=== PATIENT | male | born 1960 | race Caucasian/White ===

== ENCOUNTER 2019-06-24 21:24 | Emergency (ER) | payer OTHER ==
[2019-06-24 21:31] VITALS: RESP 18
[2019-06-24] MEDS ORDERED: SODIUM CHLORIDE 0.9% 500 ML 500 ML IV STA (21:43)
--- NOTE | 2019-06-24 21:59 | ED ---
General Adult HPI - General Chief complaint: Recheck/Abnormal Lab/Rx Stated complaint: Post op Fever Time Seen by Provider: 06/24/19 21:33 Source: patient, RN notes reviewed, old records reviewed Mode of arrival: ambulatory Limitations: no limitations - History of Present Illness Initial comments: 58-year-old male presents for evaluation of fever and vomiting. Patient is 6 days postop cholecystectomy. Patient was discharged from the hospital yesterd ay. He developed fever at home throughout the day today and he had one episode of vomiting this morning. He had taken his Motrin prior to arrival and has no complaints at the time of my evaluation. He denies cough. Denies dyspnea. Denies sore throat or rhinorrhea. Denies abdominal pain and some abdominal distention which she states is typical. Denies current dysuria, states he had some dysuria with his Irby catheter. Patient had contact the surgeon who sent the patient to the emergency department. His surgery was at [facility]. - Related Data Home Medications Medication Instructions Recorded Confirmed Azelastine HCl 2 spray EA NOSTRIL DAILY PRN 06/24/19 06/24/19 Cetirizine HCl 10 mg PO DAILY 06/24/19 06/24/19 Docusate [Colace] 100 mg PO BID 06/24/19 06/24/19 Ibuprofen [Motrin] 400 mg PO Q6HR PRN 06/24/19 06/24/19 Losartan [Cozaar] 50 mg PO DAILY 06/24/19 06/24/19 Omeprazole 20 mg PO DAILY 06/24/19 06/24/19 Triamcinolone 0.1% Cream [Kenalog 1 applicatio TOPICAL BID PRN 06/24/19 06/24/19 0.1% Cream] Allergies Allergy/AdvReac Type Severity Reaction Status Date / Time codeine Allergy Rash/Hives Verified 06/24/19 22:38 Review of Systems ROS Statement: Those systems with pertinent positive or pertinent negative responses have been documented in the HPI. ROS Other: All systems not noted in ROS Statement are negative. Past Medical History Past Medical History: GERD/Reflux, Hypertension History of Any Multi-Drug Resistant Organisms: None Reported Past Surgical History: Appendectomy, Cholecystectomy Past Psychological History: No Psychological Hx Reported Smoking Status: Current every day smoker Past Alcohol Use History: Daily Past Drug Use History: Marijuana General Exam Limitations: no limitations General appearance: alert, in no apparent distress Head exam: Present: atraumatic, normocephalic Eye exam: Present: normal appearance, PERRL ENT exam: Present: normal exam, normal oropharynx Neck exam: Present: normal inspection. Absent: tenderness, meningismus Respiratory exam: Present: normal lung sounds bilaterally. Absent: respiratory distress, wheezes Cardiovascular Exam: Present: normal rhythm, tachycardia GI/Abdominal exam: Present: distended, tenderness (Minimal tenderness. He has right upper quadrant laparotomy scar with no purulent drainage, minimal erythema, he is previous drain site with minimal serosanguineous drainage.) Extremities exam: Present: normal inspection, full ROM Back exam: Present: normal inspection Neurological exam: Present: alert, oriented X3, CN II-XII intact. Absent: motor sensory deficit Psychiatric exam: Present: normal affect, normal mood Skin exam: Present: warm, dry, intact. Absent: cyanosis, diaphoretic Course Vital Signs 06/24/19 06/24/19 21:28 22:45 Temperature 99.9 F H 98.9 F Pulse Rate 112 H 86 Respiratory 18 18 Rate Blood Pressure 105/58 118/75 O2 Sat by Pulse 96 96 Oximetry - Reevaluation(s) Reevaluation #1: 06/24/19 22:59 Patient reevaluated, resting comfortably with stable vitals, afebrile. Patient has no abdominal tenderness on exam. Medical Decision Making - Medical Decision Making 58-year-old male who is 6 days postop cholecystectomy presenting for evaluation of fever. Patient did have a measured temperature at home, he states he had not had medication and was lying under several blankets. I do not suspect this was the sole cause of his fever. He was worked up in the emergency department including chest x-ray which is negative for focal pneumonia. Influenza swab which is negative for flu. Patient had CBC showing no leukocytosis, hemoglobin was 12.7. He had mild thrombocytopenia at 123. Normal bili, mild elevation in AST. Urine is negative for infection. He has no abdominal tenderness, his abdomen is somewhat distended, incision is clean dry and intact, no purulence. No right upper quadrant tenderness, no abdominal tenderness. Initially the patient is tachycardic with temperature of 99.9. Repeat vitals show stable blood pressure, normal heart rate, afebrile. He has some mild lactic acid of 2.9 which is treated with IV fluids. Patient is asymptomatic at the time my reevaluation. I discussed case and lab results with general surgery and covering for Dr. Ambrocio, Dr. Wood. Recommends close outpatient follow-up. Patient will monitor symptoms, he will be present with elevated fever, development of cough or dyspnea, development of abdominal pain nausea vomiting. He will call the office in the morning for close outpatient follow-up. Patient is agreeable and eager for discharge. - Lab Data Result diagrams: 06/24/19 22:00 06/24/19 22:00 Lab Results 06/24/19 06/24/19 06/24/19 Range/Units 21:53 21:53 22:00 WBC 8.6 (3.8-10.6) k/uL RBC 3.78 L (4.30-5.90) m/uL Hgb 12.7 L (13.0-17.5) gm/dL Hct 38.4 L (39.0-53.0) % MCV 101.8 H (80.0-100.0) fL MCH 33.7 (25.0-35.0) pg MCHC 33.1 (31.0-37.0) g/dL RDW 14.1 (11.5-15.5) % Plt Count 123 L (150-450) k/uL Neutrophils % 78 % Lymphocytes % 15 % Monocytes % 4 % Eosinophils % 1 % Basophils % 0 % Neutrophils # 6.7 (1.3-7.7) k/uL Lymphocytes # 1.3 (1.0-4.8) k/uL Monocytes # 0.4 (0-1.0) k/uL Eosinophils # 0.1 (0-0.7) k/uL Basophils # 0.0 (0-0.2) k/uL Macrocytosis Slight Sodium (137-145) mmol/L Potassium (3.5-5.1) mmol/L Chloride (98-107) mmol/L Carbon Dioxide (22-30) mmol/L Anion Gap mmol/L BUN (9-20) mg/dL Creatinine (0.66-1.25) mg/dL Est GFR (CKD-EPI)AfAm (>60 ml/min/1.73 sqM) Est GFR (CKD-EPI)NonAf (>60 ml/min/1.73 sqM) Glucose (74-99) mg/dL Plasma Lactic Acid Jamal (0.7-2.0) mmol/L Calcium (8.4-10.2) mg/dL Total Bilirubin (0.2-1.3) mg/dL AST (17-59) U/L ALT (4-49) U/L Alkaline Phosphatase (38-126) U/L Total Protein (6.3-8.2) g/dL Albumin (3.5-5.0) g/dL Urine Color Yellow Urine Appearance Turbid (Clear) Urine pH 6.0 (5.0-8.0) Ur Specific Ethel 1.029 (1.001-1.035) Urine Protein Trace H (Negative) Urine Glucose (UA) Negative (Negative) Urine Ketones Negative (Negative) Urine Blood Small H (Negative) Urine Nitrite Negative (Negative) Urine Bilirubin Negative (Negative) Urine Urobilinogen 6.0 (<2.0) mg/dL Ur Leukocyte Esterase Negative (Negative) Urine RBC 3 (0-5) /hpf Urine WBC 3 (0-5) /hpf Amorphous Sediment Rare H (None) /hpf Urine Mucus Few H (None) /hpf Influenza Type A RNA Not Detected (Not Detectd) Influenza Type B (PCR) Not Detected (Not Detectd) 06/24/19 06/24/19 Range/Units 22:00 22:00 WBC (3.8-10.6) k/uL RBC (4.30-5.90) m/uL Hgb (13.0-17.5) gm/dL Hct (39.0-53.0) % MCV (80.0-100.0) fL MCH (25.0-35.0) pg MCHC (31.0-37.0) g/dL RDW (11.5-15.5) % Plt Count (150-450) k/uL Neutrophils % % Lymphocytes % % Monocytes % % Eosinophils % % Basophils % % Neutrophils # (1.3-7.7) k/uL Lymphocytes # (1.0-4.8) k/uL Monocytes # (0-1.0) k/uL Eosinophils # (0-0.7) k/uL Basophils # (0-0.2) k/uL Macrocytosis Sodium 133 L (137-145) mmol/L Potassium 3.7 (3.5-5.1) mmol/L Chloride 104 (98-107) mmol/L Carbon Dioxide 19 L (22-30) mmol/L Anion Gap 10 mmol/L BUN 15 (9-20) mg/dL Creatinine 1.04 (0.66-1.25) mg/dL Est GFR (CKD-EPI)AfAm >90 (>60 ml/min/1.73 sqM) Est GFR (CKD-EPI)NonAf 79 (>60 ml/min/1.73 sqM) Glucose 115 H (74-99) mg/dL Plasma Lactic Acid Jamal 2.9 H* (0.7-2.0) mmol/L Calcium 8.0 L (8.4-10.2) mg/dL Total Bilirubin 1.3 (0.2-1.3) mg/dL AST 62 H (17-59) U/L ALT 29 (4-49) U/L Alkaline Phosphatase 135 H (38-126) U/L Total Protein 6.9 (6.3-8.2) g/dL Albumin 3.0 L (3.5-5.0) g/dL Urine Color Urine Appearance (Clear) Urine pH (5.0-8.0) Ur Specific Ethel (1.001-1.035) Urine Protein (Negative) Urine Glucose (UA) (Negative) Urine Ketones (Negative) Urine Blood (Negative) Urine Nitrite (Negative) Urine Bilirubin (Negative) Urine Urobilinogen (<2.0) mg/dL Ur Leukocyte Esterase (Negative) Urine RBC (0-5) /hpf Urine WBC (0-5) /hpf Amorphous Sediment (None) /hpf Urine Mucus (None) /hpf Influenza Type A RNA (Not Detectd) Influenza Type B (PCR) (Not Detectd) Disposition Clinical Impression: Postoperative fever Disposition: HOME SELF-CARE Condition: Fair Instructions (If sedation given, give patient instructions): Fever in Adults (ED), Open Cholecystectomy (DC) Additional Instructions: Please follow up with Dr. Ambrocio in the morning, return with any new symptoms, worsening or persistent fever, abdominal pain. Is patient prescribed a controlled substance at d/c from ED?: No Referrals: Mark Bravo MD [Primary Care Provider] - 1-2 days Time of Disposition: 22:58
[2019-06-24 22:10] LABS: Amorphous Sediment,Urine Rare /hpf; Appearance,Urine Turbid (Clear); Bilirubin,Urine Negative (Negative); Blood,Urine Small (Negative); Color,Urine Yellow; Glucose,Urine (UA) Negative (Negative); Ketones,Urine Negative (Negative); Leukocyte Esterase,Urine Negative (Negative); Mucus,Urine Few /hpf; Nitrite,Urine Negative (Negative); Protein,Urine Trace (Negative); RBC,Urine 3 /hpf (0-5); Specific Gravity,Urine 1.029 (1.001-1.035); WBC,Urine 3 /hpf (0-5)
--- NOTE | 2019-06-24 22:15 | XR ---
EXAMINATION TYPE: XR chest 2V DATE OF EXAM: 06/24/2019 COMPARISON: NONE HISTORY: Fever and vomiting TECHNIQUE: FINDINGS: Heart and mediastinum are normal. Lungs are clear of infiltrate. There is no pleural effusi on. Bony thorax is intact. IMPRESSION: No active cardiopulmonary disease. Normal heart.
[2019-06-24 22:17] LABS: Basophils % (A) 0 %; Eosinophils # (A) 0.1 k/uL (0-0.7); Eosinophils % (A) 1 %; HCT 38.4 % (39.0-53.0); HGB 12.7 gm/dL (13.0-17.5); Lymphocytes # (A) 1.3 k/uL (1.0-4.8); Lymphocytes % (A) 15 %; MCH 33.7 pg (25.0-35.0); MCHC 33.1 g/dL (31.0-37.0); MCV 101.8 fL (80.0-100.0); Macrocytosis Slight; Mean Platelet Volume 8.4; Monocytes # (A) 0.4 k/uL (0-1.0); Monocytes % (A) 4 %; Neutrophils # (A) 6.7 k/uL (1.3-7.7); Neutrophils % (A) 78 %; Platelet Count 123 k/uL (150-450); RBC 3.78 m/uL (4.30-5.90); RDW 14.1 % (11.5-15.5); WBC 8.6 k/uL (3.8-10.6)
[2019-06-24 22:36] LABS: ALT 29 U/L (4-49); AST 62 U/L (17-59); African American GFR (CKD) >90 (>60 ml/min/1.73 sqM); Alkaline Phosphatase 135 U/L (38-126); Anion Gap 10 mmol/L; Blood Urea Nitrogen 15 mg/dL (9-20); Carbon Dioxide 19 mmol/L (22-30); Chloride 104 mmol/L (98-107); Glucose 115 mg/dL (74-99); Non-African American GFR(CKD) 79 (>60 ml/min/1.73 sqM); Potassium 3.7 mmol/L (3.5-5.1); Sodium 133 mmol/L (137-145); Total Bilirubin 1.3 mg/dL (0.2-1.3); Total Protein 6.9 g/dL (6.3-8.2)
[2019-06-24 22:46] VITALS: TEMP 98.9
[2019-06-24] MEDS ORDERED: SODIUM CHLORIDE 0.9% 500 ML 500 ML IV ONE (23:01)
[2019-06-24 23:42] VITALS: BP 133/81; PULSE 83
== END 2019-06-24 23:54 | disposition home or self-care (01) ==
LOC: EC 21:24
DX: R50.82 Postprocedural fever (principal); R11.10 Vomiting, unspecified; D69.6 Thrombocytopenia, unspecified; K21.9 Gastro-esophageal reflux disease without esophagitis; I10 Essential (primary) hypertension; F17.200 Nicotine dependence, unspecified, uncomplicated; Z79.899 Other long term (current) drug therapy; Z88.5 Allergy status to narcotic agent; Z90.49 Acquired absence of other specified parts of digestive tract
CPT/HCPCS: 36415; 71046; 80053; 81001; 83605; 85025; 87040; 87502; 96360; 96361; 99284